=== PATIENT | male | born 1950 | race Caucasian/White ===

== ENCOUNTER 2021-10-26 07:01 | Day surgery (SDC) | payer BC, MEDICARE ==
[2021-10-24 15:05] VITALS: BMI 28.1
[2021-10-26 07:58] VITALS: BP 140/86; TEMP 97.8
[2021-10-26] MEDS ORDERED: Iopamidol-M 300 61% 15 ML VIAL ONE (16:13)
== END 2021-10-26 10:15 | disposition home or self-care (01) ==
LOC: RAD 07:01
PROVIDERS: ATTEND Neurological Surgery
PROC: B01B1ZZ Fluoroscopy of Spinal Cord using Low Osmolar Contrast (ICD-10-PCS; principal; 2021-10-26)
DX: M48.062 Spinal stenosis, lumbar region with neurogenic claudication (principal); M48.02 Spinal stenosis, cervical region; M51.27 Other intervertebral disc displacement, lumbosacral region; M48.07 Spinal stenosis, lumbosacral region; M25.78 Osteophyte, vertebrae; K57.31 Diverticulosis of large intestine without perforation or abscess with bleeding; N28.1 Cyst of kidney, acquired; M43.16 Spondylolisthesis, lumbar region; J34.1 Cyst and mucocele of nose and nasal sinus; Z79.82 Long term (current) use of aspirin; Z79.899 Other long term (current) drug therapy; Z98.1 Arthrodesis status
CPT/HCPCS: 62305; 72126; 72132; Q9967

== ENCOUNTER 2022-05-15 08:59 | Outpatient (CLI) | payer BC, MEDICARE | END 2022-05-15 09:00 | disposition home or self-care (01) | LOC: TBSIIMAG 08:59 | PROVIDERS: ATTEND Neurological Surgery | DX: M43.16 Spondylolisthesis, lumbar region (principal); M47.816 Spondylosis without myelopathy or radiculopathy, lumbar region; Z98.890 Other specified postprocedural states | CPT/HCPCS: 72100 ==

== ENCOUNTER 2022-08-01 14:10 | Outpatient (CLI) | payer BC, MEDICARE | END 2022-08-01 14:11 | disposition home or self-care (01) | LOC: TBSIIMAG 14:10 | PROVIDERS: ATTEND Neurological Surgery | DX: M43.16 Spondylolisthesis, lumbar region (principal); M48.062 Spinal stenosis, lumbar region with neurogenic claudication; M47.816 Spondylosis without myelopathy or radiculopathy, lumbar region; Z98.890 Other specified postprocedural states | CPT/HCPCS: 72100 ==